=== PATIENT | male | born 1960 | race Caucasian/White ===

== ENCOUNTER → 2019-03-15 08:29 | Outpatient (CLI) | payer OTHER, SELFPAY ==
[2019-03-15 10:12] LABS: Absolute Lymphocyte Count 0.79 X10^3/uL (0.83-4.51); Absolute Neutrophil Count 1.4 X10^3/uL (2.0-7.7); Basophil# 0.03 X10^3/uL; Eosinophil# 0.17 X10^3/uL; Eosinophils% 5.8 % (0-5); Hematocrit 45.6 % (40-54); Hemoglobin 15.2 g/dL (13.0-16.5); Lymphocyte # 0.79 X10^3/ul (4.0); Mean Corp Hgb Conc 33.3 g/dL (32-36); Mean Corpuscular Hgb 31.7 pg (27.0-32.0); Mean Corpuscular Volume 95.2 fL (80-94); Monocyte% 17.1 % (0-10); NRBC Flagged by Analyzer 0 % (0-5); Neutrophil # 1.44 X10^3/uL (2.7-7.7); Neutrophil % 49.1 % (47-70); Platelet Count 274 K/mm3 (150-450); RBC Distribution Width CV 12.4 % (11.6-14.6); RBC Distribution Width SD 43.7 fl (35.1-43.9); Red Blood Count 4.79 M/mm3 (4.6-6.2); White Blood Count 2.9 K/mm3 (4.4-11.0)
[2019-03-15 10:56] LABS: ALB/GLOB Ratio 1.1 RATIO (0.9-2.4); AST(SGOT) 19 U/L (15-37); Alanine Aminotransfer ALT/SGPT 23 U/L (16-61); Albumin, Serum 3.9 g/dL (3.2-5.0); Alkaline Phosphatase 75 U/L (45-117); Anion Gap 4 (5-15); BUN 13 mg/dL (7-18); BUN/Creat Ratio 12.7 RATIO (10-20); Calcium,Total 8.6 mg/dL (8.5-10.1); Chloride 105 mmol/L (98-107); Cholesterol 203 mg/dL (200); Creatinine, Serum 1.02 mg/dL (0.70-1.30); EST Glomerular Filtration Rate 80 mL/min (>60); Est Glom Filt Rate - Afr Amer 97 mL/min (>60); Globulin 3.4 g/dL (2.2-4.2); Glucose 88 mg/dL (74-106); High Density Lipoprotein 82 mg/dL; Potassium 4.4 mmol/L (3.5-5.1); Protein, Total 7.3 g/dL (6.4-8.2); Sodium Level 138 mmol/L (136-145); Triglycerides 102 mg/dL; Very Low Density Lipoprotein 20 mg/dL (5-40)
== END ==
PROVIDERS: Family Provider Family Medicine; PCP Family Medicine; Referring Provider Family Medicine; Visit Provider Family Medicine
DX: Z00.00 Encounter for general adult medical examination without abnormal findings (principal); Z13.220 Encounter for screening for lipoid disorders; R53.83 Other fatigue; Z12.5 Encounter for screening for malignant neoplasm of prostate
CPT/HCPCS: 36415; 80053; 80061; 84153; 85025; G0103

== ENCOUNTER → 2019-04-16 08:41 | Outpatient (CLI) | payer OTHER, MEDICARE, SELFPAY ==
[2019-04-11 09:01] VITALS: BMI 24.9
[2019-04-16 09:53] LABS: Absolute Lymphocyte Count 0.83 X10^3/uL (0.83-4.51); Basophil# 0.04 X10^3/uL; Basophil% 1.1 % (0-1); Eosinophil# 0.18 X10^3/uL; Eosinophils% 5.1 % (0-5); Hematocrit 45.1 % (40-54); Hemoglobin 15.1 g/dL (13.0-16.5); Lymphocyte # 0.83 X10^3/ul (4.0); Lymphocyte % 23.6 % (19-41); Mean Corp Hgb Conc 33.5 g/dL (32-36); Mean Corpuscular Hgb 31.7 pg (27.0-32.0); Mean Corpuscular Volume 94.5 fL (80-94); Mean Platelet Vol. 9.7 fl (6.2-12.0); Monocyte# 0.49 X10^3/uL; NRBC Flagged by Analyzer 0 % (0-5); Neutrophil # 1.96 X10^3/uL (2.7-7.7); Neutrophil % 55.9 % (47-70); Platelet Count 350 K/mm3 (150-450); RBC Distribution Width CV 12.3 % (11.6-14.6); RBC Distribution Width SD 42.8 fl (35.1-43.9); Red Blood Count 4.77 M/mm3 (4.6-6.2); White Blood Count 3.5 K/mm3 (4.4-11.0)
[2019-04-16 10:42] LABS: ALB/GLOB Ratio 1.1 RATIO (0.9-2.4); AST(SGOT) 17 U/L (15-37); Alanine Aminotransfer ALT/SGPT 28 U/L (16-61); Albumin, Serum 3.7 g/dL (3.2-5.0); Alkaline Phosphatase 78 U/L (45-117); Anion Gap 3 (5-15); BUN 14 mg/dL (7-18); Calcium,Total 8.9 mg/dL (8.5-10.1); Chloride 106 mmol/L (98-107); Cholesterol 176 mg/dL (200); Creatinine, Serum 1.08 mg/dL (0.70-1.30); EST Glomerular Filtration Rate 75 mL/min (>60); Est Glom Filt Rate - Afr Amer 91 mL/min (>60); Globulin 3.3 g/dL (2.2-4.2); Glucose 93 mg/dL (74-106); High Density Lipoprotein 63 mg/dL; Potassium 4.1 mmol/L (3.5-5.1); Sodium Level 138 mmol/L (136-145); Triglycerides 87 mg/dL; Very Low Density Lipoprotein 17 mg/dL (5-40)
== END ==
PROVIDERS: Family Provider Family Medicine; PCP Family Medicine; Referring Provider Family Medicine; Visit Provider Family Medicine
DX: E80.6 Other disorders of bilirubin metabolism (principal); D72.819 Decreased white blood cell count, unspecified
CPT/HCPCS: 36415; 80053; 80061; 85025

== ENCOUNTER → 2019-04-24 14:00 | Outpatient (CLI) | payer OTHER, MEDICARE, SELFPAY ==
[2019-04-11 09:01] VITALS: BMI 24.9
--- NOTE | 2019-04-11 09:35 | HP_ITS ---
Intake Vital Signs 04/11/19 Height 5 ft 6 in 04/11/19 Weight: 154 lb 7 oz 04/11/19 BMI 24.9 04/11/19 BP 126/84 H 04/11/19 Blood Pressure Location Rt brachial 04/11/19 Position Sitting 04/11/19 Respiration 18 04/11/19 Pulse 64 04/11/19 Pulse Oximetry (%) 97 Intake Visit Reasons: C-Scope & L Groin Hernia Chief Complaint: LIH and c-scope Color Stripper Required: No Is patient in pain?: No Allergies No Known Allergies Allergy (Verified 04/11/19 09:02) Medications fluconazole 200 mg tablet 200 mg PO DAILY #1 tab 04/11/19 [Rx Confirmed 04/11/19] nystatin 100,000 unit/gram topical powder 1 applic TOPICAL BID #60 g 04/11/19 [Rx Confirmed 04/11/19] PFSH Medical History (Updated 04/11/19 @ 09:32 by Robert Bhat MD) Hyperbilirubinemia (congenital) (Acute) Candidiasis (Acute) Screening for malignant neoplasm of intestine (Acute) Left inguinal hernia (Acute) Fusion of spine, cervical region (Acute) History of back injury (Acute) History of thoracic spinal fusion (Acute) Surgical History (Updated 04/11/19 @ 09:00 by Rocio Culp) History of appendectomy (Acute) History of back surgery (Acute) History of neck surgery (Acute) Family History (Updated 04/11/19 @ 09:00 by Rocio Culp) Mother Cancer ovarian Social History (Updated 04/11/19 @ 09:35 by Robert Bhat MD) Smoking Status: Never smoker HPI HPI HPI: GHISLAINE CORONEL, is a 58 M who presents to the office today for HPI HPI Surgical H&P: Yes HPI: GHISLAINE CORONEL, is a 58 M who presents to the office today for surgical consultation regarding a screening colonoscopy and regarding a symptomatic left inguinal hernia. 58-year-old gentleman. About 4 years ago he had a accident causing back trauma requiring emergency surgery. At that time he was noted to have a left inguinal hernia. Recently it is becoming more symptomatic. The patient is now referred by Dr. Agee for consultation and possible repair. The patient has never had a previous Green[facility] colonoscopy. He denies family history of colon polyps or colon cancer. He has not any bright red blood per rectum or melena. It is of note however that at age 15 he has what sounds like a ruptured appendicitis. Apparently diagnosis was difficult. He has a long right nancy- rectus somewhat midline incision extending below the umbilicus to above the umbilicus. He states that several feet of bowel had to be resected at that time as well. The patient does not seek medical attention very often. Because a relative had a illness at a younger age the patient did go with an for routine check. At that time he was feeling well. Laboratory however demonstrated a white count of 2.9 with a hemoglobin 15.2 hematocrit 45.6 and platelet count 2 74,000. BUN was 13 and creatinine 1.02. Total bilirubin was 1.6 and the remainder of his LFTs were normal. Cholesterol was 203 and triglyceride 102. That laboratory was obtained on March 15, 2019. ROS General General: No weight change, appetite, fatigue, colon cancer, breast cancer or weakness HEENT HEENT: No difficulty swallowing, eye injury, eye surgery, swollen glands or hoarseness Endo Endocrine: No thyroid disease, diabetes mellitus, thyroid cancer, Hair loss, heat intolerance or cold intolerance Skin Skin: Yes rash; no changing moles Musc Musculoskeletal: Yes back problems; no arthritis, rheumatoid arthritis, gout or joint pain Cardio Cardiovascular: No murmur, pacemaker, heart disease, atrial fibrillation, high blood pressure, heart attack, heart stent, palpitations, shortness of breat with exertion or chest pain Resp Respiratory: No shortness of breath, No sleep apnea, No cough, No COPD, No asthma, No emphysema, No wheezing Gastro Gastrointestinal: No abdominal pain, No nausea or vomiting, No diarrhea, No constipation, No blood in stool, No acid reflux, No hemorrhoids, No ulcers, No gallbladder problem, No black,tarry stools Zhen Hematologic: No blood thinners, No blood disorders, No bleeding, No anemia, No blood clots Neuro Neurologic: No weakness Exam Const General: cooperative, comfortable, no acute distress Nutritional Appearance: average body habitus Orientation: alert, awake [facility] Head: normal to inspection Chest Chest palpation & inspection: normal inspection of the chest Resp Effort & Inspection: normal respiratory effort Auscultation: clear to auscultation bilaterally Cardio Rate: regular rate Rhythm: regular rhythm Heart Sounds: no murmurs GI Other: Soft, nontender, long midline incision, normal bowel sounds Other: Testicles are descended bilaterally without mass Right groin solid and intact Obvious sizable left inguinal hernia Extensive left groin rash Neuro Cognition: normal cognition Extrem General: no calf tenderness bilaterally Psych Affect: normal affect Assessment & Plan Problems 1. Left inguinal hernia K40.90 2. Screening for malignant neoplasm of intestine Z12.10 3. Candidiasis B37.9 4. 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 The patient has repeat laboratory ordered for next week I recommend doing a screening colonoscopy with possible biopsy or polypectomy as indicated. He is aware of the technique, benefit, risk, alternatives. He has had an opportunity to ask and have questions answered. We will schedule and proceed at his discretion The patient unfortunately has a significant candidiasis of the left groin. I initially offered him a laparoscopic left inguinal hernia repair but then he went on to describe the extensive nature of his previous abdominal exploration. Therefore if his laboratories unchanged we will prescribe Diflucan 200 mg to be taken orally. We have also provided him with a nystatin powder. If the left groin rash can be suppressed then I would recommend to him a open left inguinal herniorrhaphy with mesh. If the left groin rash cannot be suppressed then I would offer him the possibility of a laparoscopic left inguinal hernia repair although great care would need to be pursued in gaining access to the abdomen. The patient has had an opportunity to ask and have questions answered. He and his are very much aware of the technical challenges and recommendations at hand. In addition the patient will contact us 3 days prior to anticipated hernia surgery date with a progress report regarding the left groin. I very much appreciate the kind opportunity of assisting with his surgical care Cc: Dr. Anuel Bhat M.D., F.A.C.S. Orders Orders: Colonoscopy Today Medications New: fluconazole (Diflucan) 200 mg PO DAILY 1 tab 0RF nystatin 1 applic topical BID 60 grams 1RF Coding Level of Care Code 65502 Diagnoses Left inguinal hernia K40.90 Screening for malignant neoplasm of intestine Z12.10 Candidiasis B37.9 Hyperbilirubinemia (congenital) E80.6 04/11/19 0935 <Electronically signed by Robert lynch MD> Date _ Robert Bhat MD
--- NOTE | 2019-04-25 06:50 | EKG12_ITS ---
Test Reason : PRE OP Blood Pressure : / mmHG Vent. Rate : 066 BPM Atrial Rate : 066 BPM P-R Int : 130 ms QRS Dur : 092 ms QT Int : 414 ms P-R-T Axes : 032 041 045 degrees QTc Int : 434 ms Normal sinus rhythm Normal ECG No previous ECGs available Confirmed by AKIN MINER, CYNDY ([id number]), assignment editor KAYLA BLACK ([id number]) on 04/26/2019 1:21:35 PM Referred By: Robert Bhat Confirmed By:BETSY GERARDO MD
== END ==
PROVIDERS: PCP Family Medicine; Referring Provider Surgery; Visit Provider Surgery
DX: Z01.818 Encounter for other preprocedural examination (principal)
CPT/HCPCS: 93005

== ENCOUNTER 2019-04-26 05:55 | Day surgery (SDC) | payer OTHER, MEDICARE, SELFPAY ==
[2019-04-11 09:01] VITALS: BMI 24.9
--- NOTE | 2019-04-11 09:35 | HP_ITS ---
Intake Vital Signs 04/11/19 Height 5 ft 6 in 04/11/19 Weight: 154 lb 7 oz 04/11/19 BMI 24.9 04/11/19 BP 126/84 H 04/11/19 Blood Pressure Location Rt brachial 04/11/19 Position Sitting 04/11/19 Respiration 18 04/11/19 Pulse 64 04/11/19 Pulse Oximetry (%) 97 Intake Visit Reasons: C-Scope & L Groin Hernia Chief Complaint: LIH and c-scope Rn Psychiatric Required: No Is patient in pain?: No Allergies No Known Allergies Allergy (Verified 04/11/19 09:02) Medications fluconazole 200 mg tablet 200 mg PO DAILY #1 tab 04/11/19 [Rx Confirmed 04/11/19] nystatin 100,000 unit/gram topical powder 1 applic TOPICAL BID #60 g 04/11/19 [Rx Confirmed 04/11/19] PFSH Medical History (Updated 04/11/19 @ 09:32 by Robert Bhat MD) Hyperbilirubinemia (congenital) (Acute) Candidiasis (Acute) Screening for malignant neoplasm of intestine (Acute) Left inguinal hernia (Acute) Fusion of spine, cervical region (Acute) History of back injury (Acute) History of thoracic spinal fusion (Acute) Surgical History (Updated 04/11/19 @ 09:00 by Rocio Culp) History of appendectomy (Acute) History of back surgery (Acute) History of neck surgery (Acute) Family History (Updated 04/11/19 @ 09:00 by Rocio Culp) Mother Cancer ovarian Social History (Updated 04/11/19 @ 09:35 by Robert Bhat MD) Smoking Status: Never smoker HPI HPI HPI: GHISLAINE CORONEL, is a 58 M who presents to the office today for HPI HPI Surgical H&P: Yes HPI: GHISLAINE CORONEL, is a 58 M who presents to the office today for surgical consultation regarding a screening colonoscopy and regarding a symptomatic left inguinal hernia. 58-year-old gentleman. About 4 years ago he had a accident causing back trauma requiring emergency surgery. At that time he was noted to have a left inguinal hernia. Recently it is becoming more symptomatic. The patient is now referred by Dr. Agee for consultation and possible repair. The patient has never had a previous [facility] colonoscopy. He denies family history of colon polyps or colon cancer. He has not any bright red blood per rectum or melena. It is of note however that at age 15 he has what sounds like a ruptured appendicitis. Apparently diagnosis was difficult. He has a long right nancy- rectus somewhat midline incision extending below the umbilicus to above the umbilicus. He states that several feet of bowel had to be resected at that time as well. The patient does not seek medical attention very often. Because a relative had a illness at a younger age the patient did go with an for routine check. At that time he was feeling well. Laboratory however demonstrated a white count of 2.9 with a hemoglobin 15.2 hematocrit 45.6 and platelet count 2 74,000. BUN was 13 and creatinine 1.02. Total bilirubin was 1.6 and the remainder of his LFTs were normal. Cholesterol was 203 and triglyceride 102. That laboratory was obtained on March 15, 2019. ROS General General: No weight change, appetite, fatigue, colon cancer, breast cancer or weakness HEENT HEENT: No difficulty swallowing, eye injury, eye surgery, swollen glands or hoarseness Endo Endocrine: No thyroid disease, diabetes mellitus, thyroid cancer, Hair loss, heat intolerance or cold intolerance Skin Skin: Yes rash; no changing moles Musc Musculoskeletal: Yes back problems; no arthritis, rheumatoid arthritis, gout or joint pain Cardio Cardiovascular: No murmur, pacemaker, heart disease, atrial fibrillation, high blood pressure, heart attack, heart stent, palpitations, shortness of breat with exertion or chest pain Resp Respiratory: No shortness of breath, No sleep apnea, No cough, No COPD, No asthma, No emphysema, No wheezing Gastro Gastrointestinal: No abdominal pain, No nausea or vomiting, No diarrhea, No constipation, No blood in stool, No acid reflux, No hemorrhoids, No ulcers, No gallbladder problem, No black,tarry stools Zhen Hematologic: No blood thinners, No blood disorders, No bleeding, No anemia, No blood clots Neuro Neurologic: No weakness Exam Const General: cooperative, comfortable, no acute distress Nutritional Appearance: average body habitus Orientation: alert, awake [facility] Head: normal to inspection Chest Chest palpation & inspection: normal inspection of the chest Resp Effort & Inspection: normal respiratory effort Auscultation: clear to auscultation bilaterally Cardio Rate: regular rate Rhythm: regular rhythm Heart Sounds: no murmurs GI Other: Soft, nontender, long midline incision, normal bowel sounds Other: Testicles are descended bilaterally without mass Right groin solid and intact Obvious sizable left inguinal hernia Extensive left groin rash Neuro Cognition: normal cognition Extrem General: no calf tenderness bilaterally Psych Affect: normal affect Assessment & Plan Problems 1. Left inguinal hernia K40.90 2. Screening for malignant neoplasm of intestine Z12.10 3. Candidiasis B37.9 4. 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 The patient has repeat laboratory ordered for next week I recommend doing a screening colonoscopy with possible biopsy or polypectomy as indicated. He is aware of the technique, benefit, risk, alternatives. He has had an opportunity to ask and have questions answered. We will schedule and proceed at his discretion The patient unfortunately has a significant candidiasis of the left groin. I initially offered him a laparoscopic left inguinal hernia repair but then he went on to describe the extensive nature of his previous abdominal exploration. Therefore if his laboratories unchanged we will prescribe Diflucan 200 mg to be taken orally. We have also provided him with a nystatin powder. If the left groin rash can be suppressed then I would recommend to him a open left inguinal herniorrhaphy with mesh. If the left groin rash cannot be suppressed then I would offer him the possibility of a laparoscopic left inguinal hernia repair although great care would need to be pursued in gaining access to the abdomen. The patient has had an opportunity to ask and have questions answered. He and his are very much aware of the technical challenges and recommendations at hand. In addition the patient will contact us 3 days prior to anticipated hernia surgery date with a progress report regarding the left groin. I very much appreciate the kind opportunity of assisting with his surgical care Cc: Dr. Anuel Bhat M.D., F.A.C.S. 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 There are no clinical changes since date of exam.
[2019-04-26] VITALS (9 sets, daily range): BP systolic 81–128; BP diastolic 51–89; PULSE 66–72; RESP 15–16; TEMP 36.2–36.6; O2SAT 92–100; BMI 25.6
[2019-04-26] MEDS: Lactated Ringers 1,000 ML 75 ML IV (06:26)
--- NOTE | 2019-04-26 07:25 | OP.COLON_ITS ---
Patient Name: Deon Estrada Procedure Date: 04/26/2019 7:03 AM Date of : 1960 Age: 58 Procedure: Colonoscopy Indications: Screening for colorectal malignant neoplasm Providers: Robret Bhat MD Referring MD: Ion Agee Medicines: Midazolam 3 mg IV, Meperidine 100 mg IV Patient Profile: Last Colonoscopy: none. The patient's first colonoscopy is today. Complications: No immediate complications. Procedure: Pre-Anesthesia Assessment: - Prior to the procedure, a History and Physical was performed, and patient medications and allergies were reviewed. The patient's tolerance of previous anesthesia was also reviewed. The risks and benefits of the procedure and the sedation options and risks were discussed with the patient. All questions were answered, and informed consent was obtained. Prior Anticoagulants: The patient has taken no previous anticoagulant or antiplatelet agents. ASA Grade Assessment: II - A patient with mild systemic disease. After reviewing the risks and benefits, the patient was deemed in satisfactory condition to undergo the procedure. After I obtained informed consent, the scope was passed under direct vision. Throughout the procedure, the patient's blood pressure, pulse, and oxygen saturations were monitored continuously. The Colonoscope was introduced through the anus and advanced to the cecum, identified by appendiceal orifice and ileocecal valve. The colonoscopy was performed without difficulty. The patient tolerated the procedure well. The quality of the bowel preparation was good. The ileocecal valve and the appendiceal orifice were photographed. Moderate Sedation: Moderate (conscious) sedation was administered by the endoscopy nurse and supervised by the endoscopist. The following parameters were monitored: oxygen saturation, heart rate, blood pressure, and response to care. Total physician intraservice time was 15 minutes. Scope In: 7:11:53 AM Scope Withdrawal Time 0 hours 6 minutes 13 seconds Scope Out: 7:21:50 AM Total Procedure Duration Time 0 hours 9 minutes 57 seconds Findings: The digital rectal exam findings include enlarged prostate. Multiple diverticula were found in the sigmoid colon. The exam was otherwise without abnormality. Impression: - Enlarged prostate found on digital rectal exam. - Diverticulosis in the sigmoid colon. - The examination was otherwise normal. - No specimens collected. Recommendation: - Discharge patient to home. - Resume previous diet. - Continue present medications. - Repeat colonoscopy in 10 years for screening purposes. Procedure Code(s): --- Professional --- 00426, Colonoscopy, flexible; diagnostic, including collection of specimen(s) by brushing or washing, when performed (separate procedure) 34424, 59, Moderate sedation services provided by the same physician or other qualified health home care companion performing the diagnostic or therapeutic service that the sedation supports, requiring the presence of an independent trained observer to assist in the monitoring of the patient's level of consciousness and physiological status; initial 15 minutes of intraservice time, patient age 5 years or older Diagnosis Code(s): --- Professional --- Z12.11, Encounter for screening for malignant neoplasm of colon N40.0, Benign prostatic hyperplasia without lower urinary tract symptoms K57.30, Diverticulosis of large intestine without perforation or abscess without bleeding CPT copyright 2017 [employer]. All rights reserved. The codes documented in this report are preliminary and upon rental sales agent review may be revised to meet current compliance requirements. Rboert Bhat MD 04/26/2019 7:25:03 AM This report has been signed electronically. Number of Addenda: 0 Note Initiated On: 04/26/2019 7:03 AM
--- NOTE | 2019-04-26 07:25 | OP.CCLET_ITS ---
04/26/2019 Ion Agee Re : Colonoscopy procedure for Deon Estrada Dear Anuel This procedure was performed on Friday, April 26, 2019. My impressions and recommendations are as follows: Impressions : - Enlarged prostate found on digital rectal exam. - Diverticulosis in the sigmoid colon. - The examination was otherwise normal. - No specimens collected. Recommendations : - Discharge patient to home. - Resume previous diet. - Continue present medications. - Repeat colonoscopy in 10 years for screening purposes. My findings are described in the full procedure note, which is enclosed. If I can be of further assistance, please feel free to contact me at Doctor phone number(s): Work: . Sincerely, Robert Bhat MD 04/26/2019 7:25:03 AM This report has been signed electronically.
== END 2019-04-26 08:09 | disposition home or self-care (01) ==
LOC: EN 05:55 → AC 05:56
PROVIDERS: PCP Family Medicine; Referring Provider Family Medicine; Visit Provider Surgery
PROC: 0DJD8ZZ Inspection of Lower Intestinal Tract, Via Natural or Artificial Opening Endoscopic (ICD-10-PCS; CPT 45378; principal; 2019-04-26 06:55)
DX: Z12.11 Encounter for screening for malignant neoplasm of colon (principal); K57.30 Diverticulosis of large intestine without perforation or abscess without bleeding; K40.90 Unilateral inguinal hernia, without obstruction or gangrene, not specified as recurrent; N40.0 Benign prostatic hyperplasia without lower urinary tract symptoms; E80.6 Other disorders of bilirubin metabolism; B37.9 Candidiasis, unspecified
CPT/HCPCS: 45378; 99152; 99153; J7120

== ENCOUNTER → 2022-02-02 | Outpatient (CLI) | payer OTHER, MEDICARE, SELFPAY ==
[2022-02-02 08:12] LABS: Absolute Lymphocyte Count 0.49 X10^3/uL (0.83-4.51); Absolute Neutrophil Count 1.9 X10^3/uL (2.0-7.7); Basophil# 0.04 X10^3/uL; Basophil% 1.3 % (0-1); Eosinophil# 0.21 X10^3/uL; Eosinophils% 6.6 % (0-5); Hematocrit 44.6 % (40-54); Hemoglobin 15.2 g/dL (13.0-16.5); Lymphocyte # 0.49 X10^3/ul (0.83-4.51); Lymphocyte % 15.5 % (19-41); Mean Corp Hgb Conc 34.1 g/dL (32-36); Mean Corpuscular Hgb 32.5 pg (27.0-32.0); Mean Corpuscular Volume 95.3 fL (80-94); Mean Platelet Vol. 9.5 fl (6.2-12.0); Monocyte# 0.53 X10^3/uL; Monocyte% 16.7 % (0-10); NRBC Flagged by Analyzer 0 % (0-5); Neutrophil % 59.9 % (47-70); POSITIVE DIFFERENTIAL YES; Platelet Count 299 K/mm3 (150-450); RBC Distribution Width CV 12.6 % (11.6-14.6); RBC Distribution Width SD 44.1 fl (35.1-43.9); Red Blood Count 4.68 M/mm3 (4.6-6.2); White Blood Count 3.2 K/mm3 (4.4-11.0)
[2022-02-02 08:20] LABS: Differential Indicated SCAN CRITERIA MET
[2022-02-02 08:41] LABS: ALB/GLOB Ratio 0.9 RATIO (0.9-2.4); AST(SGOT) 24 U/L (15-37); Alanine Aminotransfer ALT/SGPT 36 U/L (16-61); Albumin, Serum 3.6 g/dL (3.2-5.0); Alkaline Phosphatase 85 U/L (45-117); Anion Gap 6 (5-15); BUN 15 mg/dL (7-18); BUN/Creat Ratio 15.5 RATIO (10-20); Calcium,Total 8.5 mg/dL (8.5-10.1); Chloride 105 mmol/L (98-107); Cholesterol 200 mg/dL (200); Creatinine, Serum 0.97 mg/dL (0.70-1.30); EST Glomerular Filtration Rate 84 mL/min (>60); Est Glom Filt Rate - Afr Amer 101 mL/min (>60); Glucose 91 mg/dL (74-106); High Density Lipoprotein 70 mg/dL; Potassium 3.9 mmol/L (3.5-5.1); Protein, Total 7.6 g/dL (6.4-8.2); Sodium Level 138 mmol/L (136-145); Triglycerides 75 mg/dL; Very Low Density Lipoprotein 15 mg/dL (5-40)
[2022-02-02 09:16] LABS: Differential Comment SCANNED
[2022-02-03 09:44] LABS: Pathologist Review Reviewed
== END | disposition home or self-care (01) ==
PROVIDERS: PCP Family Medicine; Referring Provider Family Medicine; Visit Provider Family Medicine
DX: Z00.00 Encounter for general adult medical examination without abnormal findings (principal); Z13.220 Encounter for screening for lipoid disorders; D72.819 Decreased white blood cell count, unspecified; Z12.5 Encounter for screening for malignant neoplasm of prostate
CPT/HCPCS: 36415; 80053; 80061; 84153; 85025; G0103

== ENCOUNTER → 2022-03-10 | Outpatient (CLI) | payer OTHER, MEDICARE, SELFPAY ==
[2022-03-10 08:20] LABS: Absolute Lymphocyte Count 0.35 X10^3/uL (0.83-4.51); Absolute Neutrophil Count 2.3 X10^3/uL (2.0-7.7); Basophil# 0.04 X10^3/uL; Basophil% 1.2 % (0-1); Eosinophil# 0.24 X10^3/uL; Eosinophils% 7.1 % (0-5); Hematocrit 45.4 % (40-54); Hemoglobin 15.3 g/dL (13.0-16.5); Lymphocyte # 0.35 X10^3/ul (0.83-4.51); Lymphocyte % 10.4 % (19-41); Mean Corp Hgb Conc 33.7 g/dL (32-36); Mean Corpuscular Hgb 32.3 pg (27.0-32.0); Mean Platelet Vol. 9.2 fl (6.2-12.0); Monocyte# 0.48 X10^3/uL; Monocyte% 14.2 % (0-10); NRBC Flagged by Analyzer 0 % (0-5); Neutrophil # 2.26 X10^3/uL (2.7-7.7); Neutrophil % 66.8 % (47-70); POSITIVE DIFFERENTIAL YES; Platelet Count 297 K/mm3 (150-450); RBC Distribution Width CV 12.8 % (11.6-14.6); RBC Distribution Width SD 45.5 fl (35.1-43.9); Red Blood Count 4.73 M/mm3 (4.6-6.2); White Blood Count 3.4 K/mm3 (4.4-11.0)
[2022-03-10 08:23] LABS: Differential Indicated SCAN CRITERIA MET
[2022-03-10 08:47] LABS: Vitamin B12 214 pg/mL (211-911)
[2022-03-10 09:00] LABS: Bilirubin, Direct 0.33 mg/dL (0.00-0.30)
== END | disposition home or self-care (01) ==
PROVIDERS: PCP Family Medicine; Referring Provider Family Medicine; Visit Provider Family Medicine
DX: D72.819 Decreased white blood cell count, unspecified (principal)
CPT/HCPCS: 36415; 82247; 82248; 82607; 82746; 85025

== ENCOUNTER 2022-04-25 07:29 | Day surgery (SDC) | payer OTHER, MEDICARE, SELFPAY ==
[2022-04-20 09:53] LABS: Hematocrit 44.7 % (40-54); Hemoglobin 14.8 g/dL (13.0-16.5); Mean Corp Hgb Conc 33.1 g/dL (32-36); Mean Corpuscular Hgb 31.4 pg (27.0-32.0); Mean Corpuscular Volume 94.7 fL (80-94); Mean Platelet Vol. 9.7 fl (6.2-12.0); Platelet Count 287 K/mm3 (150-450); RBC Distribution Width CV 12.5 % (11.6-14.6); RBC Distribution Width SD 43.8 fl (35.1-43.9); Red Blood Count 4.72 M/mm3 (4.6-6.2); White Blood Count 3.6 K/mm3 (4.4-11.0)
[2022-04-20 10:21] LABS: Anion Gap 5 (5-15); BUN 19 mg/dL (7-18); BUN/Creat Ratio 16.1 RATIO (10-20); Calcium,Total 8.9 mg/dL (8.5-10.1); Chloride 105 mmol/L (98-107); Creatinine, Serum 1.18 mg/dL (0.70-1.30); EST Glomerular Filtration Rate 67 mL/min (>60); Est Glom Filt Rate - Afr Amer 81 mL/min (>60); Glucose 98 mg/dL (74-106); Potassium 4.1 mmol/L (3.5-5.1); Sodium Level 138 mmol/L (136-145)
[2022-04-25] VITALS (8 sets, daily range): BP systolic 106–136; BP diastolic 67–87; PULSE 50–65; RESP 16–18; TEMP 36.1–36.9; O2SAT 95–99; BMI 25.4
[2022-04-25] MEDS: Lactated Ringers 1,000 ML 15 ML IV (08:06)
--- NOTE | 2022-04-25 08:41 | HP.PCM_ITS ---
History and Physical Date of Admission: 04/25/22 Visit Reasons:?UPDATE H&P LT INGUINAL HERNIA Chief Complaint: LIH and c-scope Platform Inspector Required: No Is patient in pain?: No Allergies No Known Allergies Allergy (Verified 03/30/22 14:12) Medications multivitamin 1 tab PO DAILY 03/30/22 [History Confirmed 03/30/22] PFSH Medical History? Candidiasis Fusion of spine, cervical region History of back injury History of thoracic spinal fusion Hyperbilirubinemia (congenital) Left inguinal hernia Screening for malignant neoplasm of intestine Surgical History? History of appendectomy History of back surgery History of neck surgery Family History? Mother Cancer ?? ? ovarian ?? ? Social History? Smoking Status:? Never smoker HPI HPI Surgical H&P: Yes HPI: Patient is a 61 y/o M I am seeing for an update history and physical for an upcoming elective left inguinal hernia repair. Patient notes increased discomfort of the left groin region. He denies change in bowel habits. He notes the left groin rash has completely resolved. Patient denies nausea, vomiting. He denies any routine daily medications. Patient's previous history per Dr. Bhat: GHISLAINE CORONEL, is a 58 M who presents to the office today for surgical consultation regarding a screening colonoscopy and regarding a symptomatic left inguinal hernia.? 58-year-old gentleman.? About 4 years ago he had a accident causing back trauma requiring emergency surgery.? At that time he was noted to have a left inguinal hernia.? Recently it is becoming more symptomatic. The patient is now referred by Dr. Agee for consultation and possible repair. The patient has never had a previous Greening colonoscopy.? He denies family history of colon polyps or colon cancer.? He has not any bright red blood per rectum or melena. It is of note however that at age 15 he has what sounds like a ruptured appendicitis.? Apparently diagnosis was difficult.? He has a long right nancy- rectus somewhat midline incision extending below the umbilicus to above the umbilicus.? He states that several feet of bowel had to be resected at that time as well. The patient does not seek medical attention very often.? Because a relative had a illness at a younger age the patient did go with an for routine check.? At that time he was feeling well.? Laboratory however demonstrated a white count of 2.9 with a hemoglobin 15.2 hematocrit 45.6 and platelet count 2 74,000.? BUN was 13 and creatinine 1.02.? Total bilirubin was 1.6 and the remainder of his LFTs were normal.? Cholesterol was 203 and triglyceride 102.? That laboratory was obtained on March 15, 2019. Dr. Bhat performed a colonoscopy on 04/26/19 which demonstrated an enlarged prostate and diverticulosis otherwise normal exam. ROS General General: No weight change, appetite, fatigue, colon cancer, breast cancer or weakness HEENT HEENT: No difficulty swallowing, eye injury, eye surgery, swollen glands or hoarseness Endo Endocrine: No thyroid disease, diabetes mellitus, thyroid cancer, Hair loss, heat intolerance or cold intolerance Skin Skin: No rash or changing moles Breast Breast: No left breast lump, right breast lump, nipple discharge, breast pain, abnormal mammogram, abnormal US or breast enlargement Musc Musculoskeletal: Yes back problems; No arthritis, rheumatoid arthritis, gout or joint pain Cardio Cardiovascular: No murmur, pacemaker, heart disease, atrial fibrillation, high blood pressure, heart attack, heart stent, palpitations, shortness of breat with exertion or chest pain Psych Psychiatric: No depression, anxiety or hearing voices Resp Respiratory: No shortness of breath, No sleep apnea, No cough, No COPD, No asthma, No emphysema and No wheezing Gastro Gastrointestinal: No abdominal pain, No nausea or vomiting, No diarrhea, No constipation, No blood in stool, No acid reflux, No hemorrhoids, No ulcers, No gallbladder problem and No black,tarry stools Zhen Hematologic: No blood thinners, No blood disorders, No bleeding, No anemia and No blood clots Neuro Neurologic: No system reviewed and no additional complaints, except as documented, No as per HPI, No abnormal gait, No abnormal hearing, No abnormal movements, No abnormal speech, No behavioral changes, No burning sensations, No confusion, No convulsions, No disequilibrium, No dizziness, No localized weakness, No frequent falls, No headache(s), No lack of coordination, No loss of vision, No memory loss, Yes numbness, No other visual disturbances, No radicular pain, No restless legs, No sensory deficit, No syncope, Yes tingling, No tremor(s), No weakness and No other Exam Const General: cooperative, healthy appearing, comfortable and no acute distress [facility] Head: normal to inspection Eyes General: appearance normal, both eyes and all related structures Neck Neck: normal visual inspection Neck mass: No Resp Effort & Inspection: normal respiratory effort Auscultation: clear to auscultation bilaterally Cardio Rate: regular rate Rhythm: regular rhythm GI Inspection: normal to inspection Other: Long midline incision noted Other: Right groin intact, no hernia Left groin- sizable left inguinal hernia palpated Musc Cervical Spine: normal cervical lordosis Skin General: no rashes or lesions noted Neuro General: no focal motor deficits Extrem General: normal to inspection Psych Appearance: grossly normal Affect: normal affect Assessment and Plan Assessment and Plan (1) Left inguinal hernia: ?Status:?Acute ?Plan: Dr. Bhat will plan to perform an open left inguinal hernia repair with mesh. Procedure details, risks and benefits have been reviewed. Patient has had the opportunity to ask and have questions answered. Patient verbally understands and agrees with the plan. I have examined the patient and the H&P has been reviewed. There are no clinical changes since date of exam. Robert Bhat M.D., F.A.C.S. Assessment & Plan Assessment/Plan (1) Left inguinal hernia:
--- NOTE | 2022-04-25 08:42 | DCINST_ITS ---
Discharge Instructions Procedure General Surgery Diet Discharge Diet: Light diet - advance as tolerated (if you have questions about your diet instructions, please talk to you doctor.) Activity Discharge Activity: May Not Drive (for 3-5 days or while taking narcotic pain medicine.) May shower in (days): 1 Lifting Restrictions: 10 pounds Dressing / Incision Call your doctor if your incision/area has: Continuous Slow Oozing, Sudden Increased Bleeding, Increased Pain/ Swelling, Increased Redness and Foul Smelling Discharge Call your doctor if you observe: Fever of 101 or Higher Suture Line Care: Avoid Pulling/Pushing and Avoid Pinching/Bending Additional Dressing/Incision Instructions:: Change or remove dressing in 4 days. Leave steri-strips in place for 1 week. Follow Up Care Please Follow Up With: Robert Bhat MD When: Call [phone] to make an appointment to be seen in about 10 days. Test Results: Test results from this visit will be discussed in further detail at your follow- up appointment, if applicable. Discharge Plan Admission Attending Provider: Robert Bhat Primary Care Provider: Ion Agee Discharge Orders/Prescriptions Prescriptions: No Action multivitamin Tablet 1 tab PO DAILY Referrals / Follow Up: Ion Agee DO [Primary Care Provider] - Disposition Disposition (needs filled in before D/C Order can be placed): Home, Self Care
[2022-04-25] MEDS: Cefazolin 2 GM in 0.9% Normal Saline 100 ML IV (08:54)
[2022-04-25] MEDS: Bupivacaine 0.5% PF 10 ML VIAL ×2 (09:12)
[2022-04-25] MEDS: Lidocaine 1% (30 ml sdv) 30 ML Vial (09:12)
--- NOTE | 2022-04-25 09:59 | PCM.OPRPT ---
Report of Operation Date of Procedure: 04/25/22 Pre-Operative Diagnosis: Left inguinal hernia Post-Operative Diagnosis: Large indirect left inguinal hernia Surgery/Procedure Performed:: Gianna left inguinal herniorrhaphy with Bard preshaped keyhole mesh Lot [id number], reference [id number], expiry date 09/21/2026 Description of Surgical Findings:: Timeout informed consent was obtained. 69-year-old gentleman was taken to the operating placed upon the table underwent monitored anesthesia care. Ancef 2 g were given intravenously. The left groin was sterilely prepped and draped. 1% lidocaine mixed 50-50 with 0.5% Marcaine was used as a local anesthetic. Throughout the procedure a total of 30 cc was used. Local was instilled a transverse incision was made in the left groin. A large hernia containing bowel and large sac was present in the groin and scrotal area. The external bleak was identified incised with longus fascia at the cord and sac were carefully milked free until the bowel contents were reduced. Got circumferential control of the cord structures and the sac and placed a Aidti drain. And tedious dissection of densely adherent cremasterics fibers to the sac was performed. Vas deferens was identified and carefully dissected free and preserved. Where needed hemostasis attained with 3-0 Vicryl ligatures and electrocautery. The dissection was quite tedious dissecting the indirect sac to all the way to the internal ring. Having achieved that I then dissected tissue free overlying the pubic tubercle. The sac was inverted. The transversalis fascia was approximated to itself with a running 3-0 Ethibond suture and this also reapproximated the defect at the internal ring. I placed a Bard mesh keyhole mesh around the remaining cremasteric fibers vascular supply and vas deferens at the internal ring secured to itself with interrupted 3-0 Ethibond the tails were then kept at full length and placed underneath the external oblique laterally. The mesh then overlapped the pubic tubercle. It was secured in place to the pubic tubercle aponeurosis of the internal/external bleak and the shelving edge of Poupart's with multiple interrupted 3-0 Ethibond sutures. I felt that I had good positioning and coverage of the defect area. The external bleak was approximated with a running 3-0 Vicryl. Inguinal nerve. Who had been thinned during the process. It was otherwise left in position. Subdermal tissues were broken up to 3-0 Vicryl. Skin edges proximal and running subicular 4-0 Monocryl. Steri-Strips Telfa OpSite dressings applied. Sponge and instrument and needle counts were reported to the surgeon to be correct. Specimens none. Drains none. Blood loss minimal. He was taken to the recovery room in satisfied condition Robert Bhat M.D., F.A.C.S. Surgeon: Robert Bhat Type of Anesthesia: Local MAC Anesthesiologist: Brittany Sibley
== END 2022-04-25 12:52 | disposition home or self-care (01) ==
LOC: SDC 07:30 → AC 07:30
PROVIDERS: PCP Family Medicine; Referring Provider Surgery; Visit Provider Surgery
PROC: (CPT 49505; principal; 2022-04-25 09:15)
DX: K40.90 Unilateral inguinal hernia, without obstruction or gangrene, not specified as recurrent (principal)
CPT/HCPCS: 49505; 00830; 36415; 80048; 85027; 93005; J7120; C1781; J2405

== ENCOUNTER → 2024-04-15 | Outpatient (CLI) | payer OTHER, MEDICARE, SELFPAY ==
--- NOTE | 2024-04-15 14:54 | US_ITS ---
STUDY: SCROTUM ULTRASOUND REASON FOR EXAM: Male, 63 years old. Postoperative hematoma -- Marlen will perform TECHNIQUE: Ultrasound evaluation of the scrotum was performed with color Doppler and static betancur-scale imaging. COMPARISON: None. FINDINGS: RIGHT TESTICLE INTRATESTICULAR: There is a normal size of the right testicle. The right testicle measures 4.5 x 2.9 x 2.9 cm. There is a homogenous echotexture. There is normal arterial and normal venous vascularity. There is no demonstrated right testicular mass or cyst. EXTRATESTICULAR: The epididymis is normal in size. The epididymis head measures 1.3 x 1.4 x 1.2 cm. There is normal vascularity of the epididymis. There is no demonstrated epididymal cystic structure. There is a small demonstrated hydrocele. There is no demonstrated varicocele. There is no demonstrated extratesticular mass or cyst. LEFT TESTICLE INTRATESTICULAR: There is a normal size of the left testicle. The left testicle measures 5.1 x 2.6 x 3.1 cm. There is a homogenous echotexture. There is absent arterial and absent venous vascularity. There is no demonstrated left testicular mass or cyst. EXTRATESTICULAR: The epididymis is normal in size. The epididymis head measures 0.3 x 0.6 x 0.6 cm. There is normal vascularity of the epididymis. There is no demonstrated epididymal cystic structure. There is no demonstrated hydrocele. There is no demonstrated varicocele. Large heterogeneous region which may represent adipose herniation. US/Testicular with Arterial Flow IMPRESSION: Absent vascularity left testicle apparently long-standing. Large extratesticular heterogeneous mass may represent herniated fat. Pending Final Proof Editing
== END | disposition home or self-care (01) ==
LOC: US 14:43
PROVIDERS: PCP Family Medicine; Referring Provider Surgery; Visit Provider Surgery
DX: K40.90 Unilateral inguinal hernia, without obstruction or gangrene, not specified as recurrent (principal); N50.89 Other specified disorders of the male genital organs
CPT/HCPCS: 76870; 93976

== ENCOUNTER → 2024-05-07 | Outpatient (CLI) | payer OTHER, MEDICARE, SELFPAY ==
[2024-05-07 16:31] LABS: Hematocrit 41.6 % (40-54); Hemoglobin 14.3 g/dL (13.0-16.5); Mean Corp Hgb Conc 34.4 g/dL (32-36); Mean Corpuscular Hgb 32.2 pg (27.0-32.0); Mean Corpuscular Volume 93.7 fL (80-94); Mean Platelet Vol. 9.7 fl (6.2-12.0); Platelet Count 266 K/mm3 (150-450); RBC Distribution Width CV 12.6 % (11.6-14.6); RBC Distribution Width SD 43.3 fl (35.1-43.9); Red Blood Count 4.44 M/mm3 (4.6-6.2); White Blood Count 3.9 K/mm3 (4.4-11.0)
[2024-05-07 17:22] LABS: Anion Gap 8 (5-15); BUN 17 mg/dL (7-18); BUN/Creat Ratio 17.4 RATIO (10-20); Calcium,Total 8.4 mg/dL (8.5-10.1); Chloride 105 mmol/L (98-107); Creatinine, Serum 0.98 mg/dL (0.70-1.30); EST Glomerular Filtration Rate 82 mL/min (>60); Est Glom Filt Rate - Afr Amer 100 mL/min (>60); Glucose 98 mg/dL (74-106); LDH 167 U/L (87-241); Sodium Level 138 mmol/L (136-145)
[2024-05-09 04:06] LABS: AFP, Tumor Marker < 1.8 ng/mL (0.0-8.4); HCG BETA-SUBUNIT QUANT. < 1 mIU/mL (0-3)
== END | disposition home or self-care (01) ==
LOC: LAB 16:07
PROVIDERS: PCP Family Medicine; Referring Provider Nurse Practitioner; Visit Provider Nurse Practitioner
DX: D40.12 Neoplasm of uncertain behavior of left testis (principal)
CPT/HCPCS: 36415; 80048; 82105; 83615; 84702; 85027

== ENCOUNTER 2024-05-15 09:17 | Day surgery (SDC) | payer OTHER, MEDICARE, SELFPAY ==
[2024-05-15] VITALS (9 sets, daily range): BP systolic 108–119; BP diastolic 74–86; PULSE 54–70; RESP 16; TEMP 36.1–36.8; O2SAT 93–98; BMI 27.0
--- NOTE | 2024-05-15 09:46 | EKG12_ITS ---
Test Reason : P Blood Pressure : */* mmHG Vent. Rate : 60 BPM Atrial Rate : 60 BPM P-R Int : 136 ms QRS Dur : 102 ms QT Int : 458 ms P-R-T Axes : 15 18 38 degrees QTcB Int : 458 ms Normal sinus rhythm Normal ECG When compared with ECG of 20-Apr-2022 09:22, No significant change was found Confirmed by Rajan Valentine ([id number]), slot editor KILEY MARCELO ([id number]) on 05/20/2024 10:48:48 AM Referred By: Kirill Madsen Confirmed By: Rajan Valentine
[2024-05-15] MEDS: 0.9% Normal Saline (1000mL) 1,000 ML 15 ML IV (09:50)
--- NOTE | 2024-05-15 10:32 | PRE.ANES_ITS ---
ASA Classification* ASA Classification ASA Classification: 2 Assessment & Plan Anesthesia* Anesthesia Assessment Anesthesia Assessment: Discussed sedation and/or anesthesia options, risks, benefits, and alternatives with patient/parents/legal guardian/POA. Questions invited. The patient/parents/legal guardian/POA seems to understand and agrees to proceed with anesthesia plan. Reviewed the physical assessment, medical history, allergy history and patient home medications list prior to surgery/procedure/anesthetic and documented any changes. Performed airway and anesthesia risk assessments. Anesthesia Type Anesthesia Type: General History Source History Obtained from:: Patient and Chart Anesthesia Focused Assessment* Temperature: 98.3 F Pulse Rate: 59 Blood Pressure: 119/83 Respiratory Rate: 16 Pulse Ox: 96 Oxygen Delivery Method: Room Air Airway Assessment Mouth opens: >3 cm Mallampati Score: III Teeth Condition: Intact Neck Range of motion (ROM): Limited ROM (Slight decrease in extension) Focused Labs Anesthesia Preop lab: CBC WBC 3.9 K/mm3 (4.4-11.0) L 05/07/24 16:10 05/07/24 RBC 4.44 M/mm3 (4.6-6.2) L 05/07/24 16:10 05/07/24 Hgb 14.3 g/dL (13.0-16.5) 05/07/24 16:10 05/07/24 Hct 41.6 % (40-54) 05/07/24 16:10 05/07/24 Plt Count 266 K/mm3 (150-450) 05/07/24 16:10 05/07/24 CHEMISTRY Potassium 4.0 mmol/L (3.5-5.1) 05/07/24 16:10 05/07/24 Sodium 138 mmol/L (136-145) 05/07/24 16:10 05/07/24 BUN 17 mg/dL (7-18) 05/07/24 16:10 05/07/24 Creatinine 0.98 mg/dL (0.70-1.30) 05/07/24 16:10 05/07/24 Glucose 98 mg/dL (74-106) 05/07/24 16:10 05/07/24 COAG Pre-Assessment Diagnosis/Proposed Procedure Planned Operative Procedure(s): (L) Orchiectomy,Radical Anesthesia History 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 When Was Last Pacemaker Check QUESTION #4 FULL TEXT: You/Your Family Experience fever (hyperthermia) with Anesthesia Last Oral Intake Last Oral intake: Last Oral Intake NPO since 00:00 05/15/24 09:44 Meds taken in AM with sips of No 05/15/24 09:44 water? Meds patient instructed to take am of surgery PONV PONV - green energy marketing analyst: PONV - green energy marketing analyst Female No 05/14/24 14:20 HX of Motion Sickness No 05/14/24 14:20 HX of N/V After Surgery No 05/14/24 14:20 Non-Smoker Yes 05/14/24 14:20 Duration of Surgery greater No 05/14/24 14:20 than 60 minutes Number of Risk Factors 1 05/14/24 14:20 PONV Score Low Risk 05/14/24 14:20 Height & Weight Height & Weight: Anesthesia: Height & Weight Height 5 ft 6 in 05/15/24 09:44 Weight: 76 kg 05/15/24 09:44 Body Mass Index (BMI) 27.0 05/15/24 09:44 Respiratory Assessment Respiratory Assessment - green energy marketing analyst: Respiratory Tract Infection Hx - green energy marketing analyst Hx Respiratory Tract Infection No 05/14/24 14:20 STOP Sleep Apnea STOP Sleep Apnea - green energy marketing analyst: STOP Sleep Apnea - green energy marketing analyst Hx Hypertension No 05/14/24 14:20 Hx Sleep Apnea No 05/14/24 14:20 CPAP No 04/25/22 10:10 BIPAP Do you snore loudly (louder No 05/14/24 14:20 than talking or can be heard Do you often feel tired/ No 05/14/24 14:20 fatigued/ sleepy during daytime? Has anyone observed you stop No 05/14/24 14:20 breathing during sleep? STOP Results Negative 05/14/24 14:20 QUESTION #5 FULL TEXT : Do you snore loudly (louder than talking or can be heard through closed doors)? 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 Specify any problems Hx of Preganancy in last 3 N/A 05/14/24 14:20 Months Nurse Filling Out Transfusion NBUCHER 05/14/24 14:20 & Questions: Date: 05/14/24 05/14/24 14:20 Time: 14:21 05/14/24 14:20 Patient unable to answer at this time (ie. confused, unrespo /Reproduction History /Reproductive History - green energy marketing analyst: /Reproductive Hx- green energy marketing analyst Hx Now No 05/14/24 14:20 Gestational Age (in weeks): EDC: Hx Hx Para Hx Section SAB No 05/14/24 14:20 Active Medications Active Medications: Current Medications Generic Name Dose Route Start Last Admin Trade Name Freq PRN Reason Stop Dose Admin Cefazolin Sodium 2 gm/ N/A 20 mls @ 400 mls/hr 05/15/24 12:45 IV 05/15/24 12:47 PREOP ONE Sodium Chloride 1,000 mls @ 15 mls/hr 05/15/24 09:40 05/15/24 09:50 IV 05/20/24 22:59 15 mls/hr .Q48H RADHA Administration Protocol PFSH Medical History Abnormal ultrasound Postoperative hematoma Macrocytosis without anemia Leukopenia Alcohol use Arthritis Leg cramps Non-smoker Back pain Vertigo Thoracic spine fracture Cervical spine fracture Hyperbilirubinemia (congenital) Candidiasis Screening for malignant neoplasm of intestine Left inguinal hernia History of thoracic spinal fusion Home Medications ?Medication ?Instructions ?Recorded ?Last Taken ?Type multivitamin 1 tab PO DAILY 03/30/22 Unkn own History Allergy/AdvReac Type Severity Reaction Status Date / Time No Known Allergies Allergy Verified 05/15/24 09:43 Family History Mother Cancer ovarian Father Cancer skin cancer Brother Prostate cancer Grandmother Heart disease heart problems Diabetes Surgical History History of hernia repair Hx of fusion of cervical spine Hx of colonoscopy History of appendectomy Social History household members: significant other current occupational status: retired 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
--- NOTE | 2024-05-15 11:10 | TEST_PTH ---
PATIENT: GHISLAINE CORONEL LOC: [facility] [place] U#:[id number] AGE/SX: 63/M ROOM: RE05/15/[address]: Dr. Kirill Madsen MD : 1960 BED: DIS: 05/15/2024 SPEC #: [id number] RECD: 05/15/24 13:35 STATUS: JENNIFER REAllison #: [id number] ZACHARY: 05/15/24 11:[address]: Kirill Madsen DEPT: SURGICAL PATHOLOGY RECD BY: Ron Johnson ENTERED: 05/15/24 14:18 SP TYPE: TESTICLE OTHR DR: Dr. Ion Agee, DO Tissues: Testis, NOS Procedures: Surgery Specimen Level HEADER OPERATION: Orchiectomy, radical PRE-OP DIAGNOSIS: Left testicular mass TISSUE SUBMITTED: Left testicle MICROSCOPIC DIAGNOSIS Left testicle, radical orchiectomy: Extensive fat necrosis, chronic inflammation, foreign body giant cell reaction and dystrophic calcification. Adjacent testicular and epididymal tissue with infarction. See comment. . 05/17/2024 COMMENT The ill-defined mass consists of fat necrosis and associated inflammation. As per EMR, the patient has a history of a hernia repair and postoperative hematoma. MICROSCOPIC DESCRIPTION Slides are reviewed. GROSS DESCRIPTION Received in fixative is one container labeled with the patient's name and designated Left testicle. The specimen consists of a radical orchiectomy specimen consistent with testicle that weighs 26.4gm and measures 6 x 4 x 3cm. No obvious spermatic cord is noted. The outer surface is ragged and inked black. Sections reveal a hardy-yellowish ill-defined mass adjacent to the testis measuring 2.5 x 2 x 2cm. No obvious epididymis is identified. Sections will be submitted after fixation. . 05/15/2024 Rag Grader sections are submitted in ten cassettes as follows: 1- most proximal portion of the specimen, 2- 6- yellowish ill-defined mass, 7-9- yellowish mass and adjacent testicle, 10- uninvolved portion of testicle. SJ.mr 05/16/2024 TC:5 CPT:81851
[2024-05-15] MEDS: Cefazolin 2 GM in Syringe IV (11:12)
[2024-05-15] MEDS: Bupivacaine Mpf 0.5% 30 ML VIAL (11:48)
--- NOTE | 2024-05-15 11:59 | HP.PCM_ITS ---
[facility] - General General Date of Service: 05/15/24 Chief Complaint: Left testicular mass HPI Narrative GHISLAINE CORONEL, is a 63 M who presents for removal of a left testicular mass on ultrasound he has an abnormal mass looking testicle it does look like he has a poor flows with possible this just could be an atrophic tripled up testicle after hernia repair from years ago. Plan to proceed with orchiectomy and removal since is a concern for cancer the tumor markers were negative. [facility] Medical History Abnormal ultrasound Postoperative hematoma Macrocytosis without anemia Leukopenia Alcohol use Arthritis Leg cramps Non-smoker Back pain Vertigo Thoracic spine fracture Cervical spine fracture Hyperbilirubinemia (congenital) Candidiasis Screening for malignant neoplasm of intestine Left inguinal hernia History of thoracic spinal fusion Home Medications ?Medication ?Instructions ?Recorded ?Last Taken ?Type multivitamin 1 tab PO DAILY 03/30/22 Unkn own History oxycodone 5 mg tablet 5 mg PO Q6H PRN pain 3 days #14 05/15/24 Unknown Rx tabs Allergy/AdvReac Type Severity Reaction Status Date / Time No Known Allergies Allergy Verified 05/15/24 09:43 Family History Mother Cancer ovarian Father Cancer skin cancer Brother Prostate cancer Grandmother Heart disease heart problems Diabetes Surgical History History of hernia repair Hx of fusion of cervical spine Hx of colonoscopy History of appendectomy Social History household members: significant other current occupational status: retired current occupation: former [employer] Smoking Status: Never smoker alcohol intake: current alcohol intake frequency: holidays/special occasions only Vital Signs Vital Signs Vital Signs: 05/15/24 09:44 05/15/24 09:44 05/15/24 10:38 Temperature 98.3 F 98.3 F Temperature Source Temporal Pulse Rate 59 L 59 L Respiratory Rate 16 16 Respiratory Pattern Normal Blood Pressure 119/83 H 119/83 H Blood Pressure Mean 95 Blood Pressure Source Monitor Blood Pressure Position Semi-Fowlers Blood Pressure Location Left Arm Pulse Ox 96 96 Oxygen Delivery Method Room Air Room Air Weight Weight: 76 kg Body Mass Index (BMI) 27.0
--- NOTE | 2024-05-15 12:00 | OP.PCM_ITS ---
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: No Type of Anesthesia: General RN Documented Start/Stop Times: Operation Date: 05/15/24 11:10 Case Time Into Pre-Op 05/15/24 09:35 Out of Pre-Op 05/15/24 11:03 Anesthesia Start 05/15/24 11:05 Into Room 05/15/24 11:05 Procedure Start 05/15/24 11:18 Procedure Start Time: 11:18 Procedure Stop Time: 12:01 Select all DRAINS/GRAFTS/IMPLANTS that apply: None Estimated Blood Loss: 5 Specimen collected: Yes Description of specimen(s) removed: Left testicle mass Description of surgery: Left testicle mass which was really scarred in and completely socked in to the left scrotum Surgical Findings: Patient was taken back to the operative room and a smooth induction of anesthesia he was placed supine on the table the left inguinal area was shaved prepped and draped in usual sterile fashion I then made an incision in the prior left inguinal area right over the prior incision he had a prior left inguinal repair the patient reported that he had a large hematoma after the surgery and then after that the hematoma resolved but then he was found to have is really hard lump in the left testicle for follow-up with general surgery for concern for hernia he does not have a hernia but ultrasound was obtained and the ultrasound looks abnormal he has a small show but up hypoechoic left testicle that looks very suspicious for possible malignancy but also could just be an atrophic left testicle as a result of compromised blood flow perhaps from the surgery. Either way the testicle looks suspicious for malignancy organ to proceed with a radical orchiectomy but it is possible this just could be sequelae from the prior inguinal hernia surgery repair. Patient was taken back to the operating room after smooth induction of anesthesia made an incision in the left inguinal area dissected down through Ileana's fascia I then tried to identify the cord but it was really Ambrosio he had mesh put in so I did not try to open up the inguinal cord I went down to the scrotum and delivered the testicle from the scrotum the mass in the scrotum was adherent to all the scrotal srivastava at the dissected out very carefully from the scrotal srivastava I did buttonhole a little bit of the scrotal wall as well as doing this this was identified identified and corrected I then continued to dissect the testicle off the scrotum again is extremely adherent to the scrotum and then once the testicle and the cord was removed from the scrotal wall then I suture- ligated the spermatic cord with ligation sutures and then remove the mass and it was sent off as a specimen I then closed the buttonhole in the scrotum I irrigated the area we closed Ileana Ileana's fascia and then we closed the skin layer patient anesthetic was reversed and he is taken back to the PACU in good condition he will follow-up in 2 weeks to review the pathology report. Complications Complications: No Admit VTE Documentation VTE Present on Admission: No VTE Mechan Device Prophylaxis: SCD's VTE Pharm Prophylaxis ordered?: No
--- NOTE | 2024-05-15 12:00 | PCM.DC ---
Discharge Instructions Diet Discharge Diet: No restrictions DC O2, CPAP, BIPAP needs Home O2 Discharge instructions: No Dressing / Incision Discharge Activity: Return to Normal Activity and May Not Drive (while taking narcotic pain medications.) Dressing / Incision Call your doctor if you observe: Fever of 101 or Higher Follow Up Care Please Follow Up With: Kirill Madsen MD When: Call [phone] for an appointment Test Results: Test results from this visit will be discussed in further detail at your follow-up appointment, if applicable. Discharge Plan Admission Primary Reason for Your Visit: removal of left testicle Attending Provider: Kirill Madsen Primary Care Provider: Ion Agee Instructions Print Language: Luxembourgish Discharge Orders/Prescriptions Prescriptions: New oxycodone 5 mg tablet 5 mg PO Q6H PRN (Reason: pain) 3 Days Qty: 14 0RF No Action multivitamin Tablet 1 tab PO DAILY Referrals / Follow Up: Kirill Madsen MD [Med Staff - Active Staff] - Ion Agee DO [Primary Care Provider] - Disposition Disposition (needs filled in before D/C Order can be placed): Home, Self Care
--- NOTE | 2024-05-15 12:22 | PCM.POST.ANE ---
Anesthesia: Postop Eval I Current Vital Signs Temperature: 97.0 F Pulse Rate: 70 Blood Pressure: 108/74 Respiratory Rate: 16 Pulse Ox: 98 Oxygen Delivery Method: Room Air Fraction of Inspired Oxygen (FIO2): 0.21 Assessment Airway patent: Yes Spontaneous unlabored respirations: Yes Mental status: Awake and Calm nausea: No Vomiting: No Anesthesia Complication: No Fluid Hydration Crystalloid volume administer (ml): 400 Total IV fluid infused: 400 Progress Note Anesthesia document: Postop Eval 1 completed: Yes
--- NOTE | 2024-05-15 13:31 | POSTOPAN2_ITS ---
Anesthesia Postop Eval I Sum Postop Eval Completion status Anesthesia document: Postop Eval 1 completed: Yes Anesthesia Postop Eval I Summary Anesthesia Postop Eval I Summary: Anesthesia Postop Eval I: Assessment Summary Airway patent Yes 05/15/24 12:23 [email or web address] Spontaneous unlabored Yes 05/15/24 12:23 [email or web address] respirations Mental status Awake,Calm 05/15/24 12:23 [email or web address] nausea No 05/15/24 12:23 [email or web address] Vomiting No 05/15/24 12:23 [email or web address] Anesthesia Postop Eval I: Fluid Summary Crystalloid volume administer 400 05/15/24 12:23 [email or web address] (ml) Colloids volume administered ( ml) Blood Product volume administered (ml) Total IV fluid infused 400 05/15/24 12:23 [email or web address] Anesthesia Postop Eval I: Summary Notes Anesthesia Complication No 05/15/24 12:23 [email or web address] Anesthesia Complication Comment: Post-operative progress note Anesthesia: Postop Eval II Evaluation Mental status: Awake and Calm Pain Level: 1 nausea: No Vomiting: No
--- NOTE | 2024-05-15 13:31 | PCM.POSTANE2 ---
Anesthesia Postop Eval I Sum Postop Eval Completion status Anesthesia document: Postop Eval 1 completed: Yes Anesthesia Postop Eval I Summary Anesthesia Postop Eval I Summary: Anesthesia Postop Eval I: Assessment Summary Airway patent Yes 05/15/24 12:23 [email or web address] Spontaneous unlabored Yes 05/15/24 12:23 [email or web address] respirations Mental status Awake,Calm 05/15/24 12:23 [email or web address] nausea No 05/15/24 12:23 [email or web address] Vomiting No 05/15/24 12:23 [email or web address] Anesthesia Postop Eval I: Fluid Summary Crystalloid volume administer 400 05/15/24 12:23 [email or web address] (ml) Colloids volume administered ( ml) Blood Product volume administered (ml) Total IV fluid infused 400 05/15/24 12:23 [email or web address] Anesthesia Postop Eval I: Summary Notes Anesthesia Complication No 05/15/24 12:23 [email or web address] Anesthesia Complication Comment: Post-operative progress note Anesthesia: Postop Eval II Evaluation Mental status: Awake and Calm Pain Level: 1 nausea: No Vomiting: No
== END 2024-05-15 13:34 | disposition home or self-care (01) ==
LOC: SDC 09:17 → AC 09:19
PROVIDERS: PCP Family Medicine; Referring Provider Urology; Visit Provider Urology
PROC: (CPT 54530; principal; 2024-05-15 10:55)
DX: N50.89 Other specified disorders of the male genital organs (principal)
CPT/HCPCS: 54530; 00926; 88309; 93005; J2405